=== PATIENT | female | born 1940 | race Asian ===

== ENCOUNTER 2020-10-17 12:36 | Observation (INO) | payer BC, OTHER ==
[2020-10-17 12:55] VITALS: BMI 30.2
[2020-10-17 14:10] LABS: BASO % 0.7 % (0-2.0); EOS % 7.4 % (0-4.5); HEMATOCRIT 35.3 % (32.4-45.2); HEMOGLOBIN 12.3 GM/dL (10.7-15.3); LYMPH % 32.8 % (8-40); MCH 31.4 pg (25.7-33.7); MCHC 34.7 g/dl (32.0-36.0); MEAN CELL VOLUME 90.6 fl (80-96); MEAN PLT VOLUME 8.6 fl (7.5-11.1); MONO % 8.1 % (3.8-10.2); PLATELET COUNT 180 10^3/uL (134-434); RDW 13.4 % (11.6-15.6); WHITE BLOOD COUNT 7.4 K/mm3 (4.0-10.0)
[2020-10-17 14:30] LABS: CHLORIDE 112 mmol/L (98-107); SODIUM 142 mmol/L (136-145)
[2020-10-17 14:33] LABS: ALBUMIN 3.6 g/dl (3.4-5.0); ANION GAP 3 MMOL/L (8-16); BLOOD UREA NITROGEN 20.1 mg/dL (7-18); CALCIUM 8.9 mg/dL (8.5-10.1); CO2 27 mmol/L (21-32)
[2020-10-17 14:34] LABS: GLUCOSE,RANDOM 90 mg/dL (74-106)
[2020-10-17 14:36] LABS: SGPT/ALT 27 U/L (13-61)
[2020-10-17 14:37] LABS: CREATININE 0.7 mg/dL (0.55-1.3); SGOT/AST 25 U/L (15-37)
[2020-10-17 14:38] LABS: BILIRUBIN,TOTAL 0.6 mg/dL (0.2-1); TOT PROT 7.6 g/dl (6.4-8.2)
[2020-10-17 14:39] LABS: ALK PHOS 77 U/L (45-117)
[2020-10-17] MEDS ORDERED: ASPIRIN 81 MG CHEWABLE TABLETS PO ONE (15:48)
[2020-10-17] MEDS ORDERED: ASPIRIN 81 MG CHEWABLE TABLETS ONE (15:51)
[2020-10-17 18:30] LABS: N-TERMINAL BNP 30.7 pg/ml (5-450)
[2020-10-17 18:31] LABS: LDH 233 U/L (84-246)
[2020-10-17 18:35] LABS: MAGNESIUM 2.6 mg/dL (1.8-2.4)
[2020-10-17 18:39] LABS: PHOSPHOROUS 3.8 mg/dL (2.5-4.9)
[2020-10-18 06:45] LABS: ALBUMIN 3.3 g/dl (3.4-5.0); BLOOD UREA NITROGEN 24.6 mg/dL (7-18); CALCIUM 8.7 mg/dL (8.5-10.1); MAGNESIUM 2.1 mg/dL (1.8-2.4)
[2020-10-18 06:49] LABS: CREATININE 0.7 mg/dL (0.55-1.3)
[2020-10-18 06:50] LABS: BILIRUBIN,TOTAL 0.6 mg/dL (0.2-1); TOT PROT 7.1 g/dl (6.4-8.2)
[2020-10-18] MEDS ORDERED: LEVOTHYROXINE NA 50 MCG TABLET (FP) PO SCH (07:15)
[2020-10-18] MEDS ORDERED: ATENOLOL 25 MG TABLET (FP) ONE (08:24)
[2020-10-18] MEDS ORDERED: MULTIVITAMINS (DAILY MVI) TABLET (FP) ONE (08:24)
[2020-10-18] MEDS ORDERED: ASPIRIN 81 MG CHEWABLE TABLETS ONE (08:24)
[2020-10-18] MEDS ORDERED: ENOXAPARIN NA (PORCINE) 40 MG/0.4 ML DISP.SYRIN SQ ONE (08:25)
[2020-10-18] MEDS ORDERED: LEVOTHYROXINE NA 25 MCG TABLET (FP) ONE (08:25)
[2020-10-18] MEDS ORDERED: MULTIVITAMINS (DAILY MVI) TABLET (FP) PO SCH (10:00)
[2020-10-18] MEDS ORDERED: ENOXAPARIN NA (PORCINE) 40 MG/0.4 ML DISP.SYRIN SQ SCH (10:00)
[2020-10-18] MEDS ORDERED: ATENOLOL 50 MG TABLET (FP) PO SCH (10:00)
[2020-10-18] MEDS ORDERED: ASPIRIN 81 MG CHEWABLE TABLETS PO SCH (10:00)
[2020-10-18 14:10] VITALS: BP 140/58; PULSE 61; TEMP 97.6
== END 2020-10-18 15:30 | disposition home or self-care (01) ==
LOC: JER 12:36 → JERBED 15:48
PROVIDERS: ADMIT Internal Medicine; ATTEND Internal Medicine
PROC: 3E013GC Introduction of Other Therapeutic Substance into Subcutaneous Tissue, Percutaneous Approach (ICD-10-PCS; principal; 2020-10-17)
DX: R07.89 Other chest pain (principal); J84.9 Interstitial pulmonary disease, unspecified; R91.8 Other nonspecific abnormal finding of lung field; I10 Essential (primary) hypertension; E03.9 Hypothyroidism, unspecified; R00.1 Bradycardia, unspecified; R05 Cough; Z79.82 Long term (current) use of aspirin; Z88.3 Allergy status to other anti-infective agents
CPT/HCPCS: 36415; 71045-TC-FY; 71250-TC; 76604; 80053; 82550; 82728; 83036; 83615; 83735; 83880; 84100; 84443; 84484; 85025; 85379; 85651; 86038; 86140; 93005; 93010; 93308; 93971-RT; 96372; 99285-25; C9803; G0378; U0003; U0005